=== PATIENT | female | born 1940 ===

== ENCOUNTER → 2019-08-25 01:46 | Outpatient (CLI) | payer MEDICARE ==
[2019-08-25 02:02] LABS: BACTERIA MANY /hpf (NEGATIVE); BILIRUBIN NEGATIVE (NEGATIVE); EPITHELIAL CELLS RARE /hpf (0-5); GLUCOSE NEGATIVE (NEGATIVE); KETONE NEGATIVE (NEGATIVE); NITRITE POSITIVE (NEGATIVE); UROBILINOGEN NORMAL (NORMAL); WHITE CELLS - URINE >50 /hpf (NEGATIVE)
== END | disposition home or self-care (01) ==
LOC: D.LABREF 01:46
PROVIDERS: ATTEND Family Medicine
DX: J18.9 Pneumonia, unspecified organism (principal); J43.2 Centrilobular emphysema; F03.90 Unspecified dementia, unspecified severity, without behavioral disturbance, psychotic disturbance, mood disturbance, and anxiety; E43 Unspecified severe protein-calorie malnutrition